=== PATIENT | male | born 1955 | race African-American/Black ===

== ENCOUNTER 2022-05-01 19:23 | Emergency (ER) | payer MEDICARE ==
[2022-05-01 19:29] VITALS: BP 165/78
[2022-05-01 20:40] LABS: BASOPHILS # (AUTO) 0.1 10^3/uL (0.0-0.1); BASOPHILS % (AUTO) 1 % (0-10); EOSINOPHILS # (AUTO) 0.1 10^3/uL (0.0-0.3); EOSINOPHILS % (AUTO) 1 % (0-10); HEMATOCRIT 45 % (40-54); HEMOGLOBIN 15.8 g/dL (13.3-17.7); LYMPHOCYTES # (AUTO) 1.3 10^3/uL (1.0-4.0); LYMPHOCYTES % (AUTO) 14 % (12-44); MEAN CORPUSCULAR HEMOGLOBIN 31 pg (25-34); MEAN CORPUSCULAR HGB CONC 35 g/dL (32-36); MEAN CORPUSCULAR VOLUME 88 fL (80-99); MEAN PLATELET VOLUME 9.9 fL (9.0-12.2); MONOCYTES # (AUTO) 1.1 10^3/uL (0.0-1.0); MONOCYTES % (AUTO) 11 % (0-12); NEUTROPHILS # (AUTO) 7.2 10^3/uL (1.8-7.8); NEUTROPHILS % (AUTO) 74 % (42-75); PLATELET COUNT 295 10^3/uL (130-400); WHITE BLOOD COUNT 9.8 10^3/uL (4.3-11.0)
[2022-05-01 20:57] LABS: ALBUMIN 4.2 GM/DL (3.2-4.5); POTASSIUM 3.2 MMOL/L (3.6-5.0)
[2022-05-01 20:58] LABS: CALCIUM 9.5 MG/DL (8.5-10.1)
[2022-05-01 20:59] LABS: TOTAL PROTEIN 8.1 GM/DL (6.4-8.2)
[2022-05-01 21:01] LABS: BILIRUBIN,TOTAL 0.8 MG/DL (0.1-1.0)
[2022-05-01 21:03] LABS: CREATININE SERUM 1.13 MG/DL (0.60-1.30)
[2022-05-01] MEDS ORDERED: IOHEXOL 350 MG/ML 100 ML (OMNIPAQUE 350) VIAL IV ONE (21:30)
[2022-05-01] MEDS ORDERED: HOLD METFORMIN - RECEIVED CONTRAST 20 ML VIAL IV SCH (21:30)
[2022-05-01] MEDS ORDERED: NS 100 ML (IVPB) BAG IV ONE (21:30)
--- NOTE | 2022-05-01 21:38 | ED General ---
General Chief Complaint: General Problems/Pain Stated Complaint: SWOLLEN THROAT,DIFFICULTY SWALLOWING Nursing Triage Note: PT ARRIVAL TO ER VIA PRIVATE VEHICLE FROM HOME WITH COMPLAINTS OF SOA/SWOLLEN THROAT X1 WEEK. PT STATES THAT HE HAS SEEN DOCTOR TWICE IN THE LAST WEEK FOR THIS. PATIENT WAS STARTED ON PREDISONE AND COMPLETED IT WITHOUT IMPROVEMENT. PT SOUNDS HOARSE. PATIENT DENIES THROAT BEING SORE. PATIENT STATES THAT ITS HARD TO SWALLOW AND JUST HAVE AN OVERALL FATIGUE. Source of Information: Patient, Family (spouse) Exam Limitations: No Limitations History of Present Illness Date Seen by Provider: May 01, 2022 Time Seen by Provider: 19:40 Initial Comments History is provided by patient and spouse. Patient is a 67-year-old male who presents to the emergency department for evaluation of approximately 2 weeks of feeling like his throat is swelling. He states the symptoms have not necessarily worsened but they have not improved. He states earlier today he had an episode of feeling like he could not breathe. He thinks he may have had a panic attack. This prompted his to tell him that he needs to present to the ER which she did. Patient states he is able to eat and drink well he feels like sometimes he has issues getting food swallowed all the way down. Denies any recent fever or other ill symptoms. Denies any wheezing or stridor. Denies any chest pain. No recent trauma to the neck. He has been seen by his PCP multiple times. He was initially placed on prednisone which she has since completed without improvement. Patient states he has a CT of his neck with contrast scheduled as well as evaluation by an ENT provider. Unsure of the exact dates of these as they are being set up by his PCP. Allergies and Home Medications Allergies Coded Allergies: No Known Drug Allergies (Unverified , 05/01/22) Patient Home Medication List Home Medication List Reviewed: Yes Review of Systems Review of Systems Constitutional: no symptoms reported EENTM: see HPI, hoarseness, throat swelling Respiratory: no symptoms reported Cardiovascular: no symptoms reported Gastrointestinal: no symptoms reported Genitourinary: no symptoms reported Musculoskeletal: no symptoms reported Skin: no symptoms reported Psychiatric/Neurological: No Symptoms Reported Hematologic/Lymphatic: No Symptoms Reported Immunological/Allergic: no symptoms reported Past Dnzmfcm-Jiywiu-Yzbtso Hx Patient Social History Tobacco Use?: No Use of E-Cig and/or Vaping dev: No Substance use?: No Alcohol Use?: No Pt feels they are or have been: No Immunizations Up To Date Influenza Vaccine Up-to-Date: No; Not Current Physical Exam Vital Signs Vital Signs - First Documented 05/01/22 19:29 Temp 36.4 Pulse 71 Resp 20 B/P (MAP) 165/78 (107) Pulse Ox 96 O2 Delivery Room Air Capillary Refill : Less Than 3 Seconds Height, Weight, BMI Height: '" Weight: lbs. oz. 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 Skin: Normal Color, Warm/Dry Progress/Results/Core Measures Suspected Sepsis SIRS Temperature: Pulse: 71 Respiratory Rate: 20 Laboratory Tests 05/01/22 20:30: White Blood Count 9.8 Blood Pressure 165 /78 Mean: 107 Laboratory Tests 05/01/22 20:30: Creatinine 1.13, Platelet Count 295, Total Bilirubin 0.8 Results/Orders Lab Results Laboratory Tests Test 05/01/22 20:30 Range/Units White Blood Count 9.8 4.3-11.0 10^3/uL Red Blood Count 5.15 4.30-5.52 10^6/uL Hemoglobin 15.8 13.3-17.7 g/dL Hematocrit 45 40-54 % Mean Corpuscular Volume 88 80-99 fL Mean Corpuscular Hemoglobin 31 25-34 pg Mean Corpuscular Hemoglobin Concent 35 32-36 g/dL Red Cell Distribution Width 14.1 10.0-14.5 % Platelet Count 295 130-400 10^3/uL Mean Platelet Volume 9.9 9.0-12.2 fL Immature Granulocyte % (Auto) 0 % Neutrophils (%) (Auto) 74 42-75 % Lymphocytes (%) (Auto) 14 12-44 % Monocytes (%) (Auto) 11 0-12 % Eosinophils (%) (Auto) 1 0-10 % Basophils (%) (Auto) 1 0-10 % Neutrophils # (Auto) 7.2 1.8-7.8 10^3/uL Lymphocytes # (Auto) 1.3 1.0-4.0 10^3/uL Monocytes # (Auto) 1.1 H 0.0-1.0 10^3/uL Eosinophils # (Auto) 0.1 0.0-0.3 10^3/uL Basophils # (Auto) 0.1 0.0-0.1 10^3/uL Immature Granulocyte # (Auto) 0.0 0.0-0.1 10^3/uL Sodium Level 139 135-145 MMOL/L Potassium Level 3.2 L 3.6-5.0 MMOL/L Chloride Level 102 98-107 MMOL/L Carbon Dioxide Level 25 21-32 MMOL/L Anion Gap 12 5-14 MMOL/L Blood Urea Nitrogen 13 7-18 MG/DL Creatinine 1.13 0.60-1.30 MG/DL Estimat Glomerular Filtration Rate 71 BUN/Creatinine Ratio 12 Glucose Level 106 H 70-105 MG/DL Calcium Level 9.5 8.5-10.1 MG/DL Corrected Calcium 9.3 8.5-10.1 MG/DL Total Bilirubin 0.8 0.1-1.0 MG/DL Aspartate Amino Transf (AST/SGOT) 25 5-34 U/L Alanine Aminotransferase (ALT/SGPT) 29 0-55 U/L Alkaline Phosphatase 86 40-136 U/L Total Protein 8.1 6.4-8.2 GM/DL Albumin 4.2 3.2-4.5 GM/DL My Orders Orders - CANDY GATICA VICE PROVOST Cbc With Automated Diff (05/01/22 20:26) Comprehensive Metabolic Panel (05/01/22 20:26) Iv/Invasive Line Insertion .IV INSERT (05/01/22 20:26) Ct Neck (Soft Tissue) W (05/01/22 20:26) Iohexol Injection (Omnipaque 350 Mg/Ml 1 (05/01/22 21:30) Received Contrast (Hold Metformin- Contr (05/01/22 21:30) Ns (Ivpb) (Sodium Chloride 0.9% Ivpb Bag (05/01/22 21:30) Medications Given in ED Vital Signs/I&O 05/01/22 19:29 Temp 36.4 Pulse 71 Resp 20 B/P (MAP) 165/78 (107) Pulse Ox 96 O2 Delivery Room Air Capillary Refill : Less Than 3 Seconds Blood Pressure Mean: 107 Progress Note : Progress Note Patient is nontoxic and well-hydrated on exam. No adventitious lung sounds or increased work of breathing noted. No significant abnormality noted on oropharyngeal exam. There is more prominent tissue noted to the left soft palate compared to the right. This does not appear to be a peritonsillar abscess. Patient does have a history of palatoplasty for sleep apnea which he states was unsuccessful. He has full range of motion of his neck. No significant cervical adenopathy noted. CT of the neck with contrast was ordered as well as CBC and CMP. Differential diagnosis includes globus, mass, retropharyngeal abscess, peritonsillar abscess. I feel like retropharyngeal abscess and peritonsillar abscess are unlikely at this time given patient's reassuring vital signs and exam. CBC and CMP are largely unremarkable other than some mild hypokalemia. There was an issue with the radiology software that led to a prolonged turnaround time in obtaining a read. Due to this prolonged wait time, patient asked to be allowed to leave. They were informed this would be AGAINST MEDICAL ADVICE and they signed paperwork stating they understood the risks of leaving versus benefits of staying. I encouraged them to follow-up with PCP. Return precautions for urgent symptomology discussed. Patient verbalized understanding. Departure Impression Primary Impression: Hoarseness Additional Impression: Globus sensation Disposition: 07 AGAINST MEDICAL ADVICE Condition: Against Medical Advice Departure-Patient Inst. Referrals: NO,LOCAL PHYSICIAN (PCP/Family) Primary Care Physician CANDY GATICA APRN May 01, 2022 21:38
--- NOTE | 2022-05-02 08:02 | Diagnostic Imaging Report ---
PROCEDURE: CT neck soft tissue with contrast. TECHNIQUE: Multiple contiguous axial images were obtained through the neck after the administration of contrast. Auto Exposure Controls were utilized during the CT exam to meet ALARA standards for radiation dose reduction. INDICATION: Worsening dysphagia. Hoarseness. COMPARISON: None. FINDINGS: No suspicious mass or fluid collection is seen in the neck. No lymphadenopathy. No suspicious enhancement or asymmetry in the pharynx or larynx. The floor of the mouth, tongue base, epiglottis and retropharyngeal space are unremarkable. Normal thyroid and major salivary glands. Major vessels in the neck are grossly patent. The lung apices are clear. Visualized paranasal sinuses and mastoids are clear. Moderate to severe spondylotic changes in the cervical spine. IMPRESSION: No acute CT findings in the neck. Agree with preliminary interpretation. Dictated by: Dictated on workstation # [id number]
== END 2022-05-01 22:15 | disposition left against medical advice (07) ==
LOC: ER 19:27
DX: R49.0 Dysphonia (principal); E87.6 Hypokalemia; R09.89 Other specified symptoms and signs involving the circulatory and respiratory systems; Z28.310 Unvaccinated for COVID-19
CPT/HCPCS: 36415; 70491; 80053; 85025; 99283

== ENCOUNTER 2022-05-16 14:40 | Emergency (ER) | payer MEDICARE ==
[~2022-05-16] VITALS: Ht 183 cm; Wt 117.9 kg
[2022-05-16] MEDS ORDERED: LACTATED RINGERS 1,000 ML IV ONE (15:00)
[2022-05-16 15:08] LABS: BASOPHILS # (AUTO) 0.1 10^3/uL (0.0-0.1); BASOPHILS % (AUTO) 1 % (0-10); EOSINOPHILS # (AUTO) 0.1 10^3/uL (0.0-0.3); EOSINOPHILS % (AUTO) 1 % (0-10); HEMATOCRIT 47 % (40-54); HEMOGLOBIN 16.8 g/dL (13.3-17.7); LYMPHOCYTES # (AUTO) 1.8 10^3/uL (1.0-4.0); LYMPHOCYTES % (AUTO) 22 % (12-44); MEAN CORPUSCULAR HEMOGLOBIN 31 pg (25-34); MEAN CORPUSCULAR HGB CONC 36 g/dL (32-36); MEAN CORPUSCULAR VOLUME 86 fL (80-99); MEAN PLATELET VOLUME 10.5 fL (9.0-12.2); MONOCYTES # (AUTO) 0.8 10^3/uL (0.0-1.0); MONOCYTES % (AUTO) 10 % (0-12); NEUTROPHILS # (AUTO) 5.4 10^3/uL (1.8-7.8); NEUTROPHILS % (AUTO) 66 % (42-75); PLATELET COUNT 319 10^3/uL (130-400); WHITE BLOOD COUNT 8.1 10^3/uL (4.3-11.0)
[2022-05-16 15:19] LABS: POTASSIUM 4.2 MMOL/L (3.6-5.0)
--- NOTE | 2022-05-16 15:20 | ED General ---
General Chief Complaint: Cardiac/General Problems Stated Complaint: LOW BLOOD PRESSURE Nursing Triage Note: PT WITH STATES PT IS HAVING A HARD TIME SWALLOWING AND IS SCHEDULED FOR CT'S PER DR. JEAN, ISSUE STARTED ABOUT 3 WKS AGO, DIFFICULTY TALKING, RT FACE WEAKNESS Source of Information: Patient, Spouse ( IS VERY ANXIOUS, TALKS NON-STOP AND TRIES TO DO ALL TALKING FOR PT, AND IS MAKING MULTIPLE DEMANDS IMMEIDATELY ON ARRIVAL. ) History of Present Illness Date Seen by Provider: May 16, 2022 Time Seen by Provider: 14:58 Initial Comments PT ARRIVES VIA POV FROM HOME PT HAS BEEN HAVING SYMPTOMS FOR THE LAST 3 WEEKS--SINCE THE END OF MARCH: -DIFFICULTY SWALLOWING--STATES HE CANNOT SWALLOW FOOD, BUT IS ABLE TO DRINK LIQUIDS OK AND SOME SOFT FOODS SUCH APPLESAUCE. HE IS HAVING DIFFICULTY SWALLOWING SALIVA, AND IS CONSTANTLY SPITTING UP SALIVA -VOICE IS HOARSE -RIGHT SIDE OF FACE IS DROOPING AND NUMB--CAN'T CLOSE RIGHT EYE, OR RAISE RIGHT BROW, AND RIGHT CHEEK / SIDE OF MOUTH IS DROOPING, AND RIGHT EYE IS WATERY ALL THE TIME. -HE HAS BEEN HAVING GENERALIZED WEAKNESS, BUT NO ARM OR LEG WEAKNESS OR NUMBNESS OR TINGLING -HE GETS LIGHTHEADED WHEN HE STANDS UP -HE HAS LOST 25# IN THE LAST 2 WEEKS, DUE TO NOT BEING ABLE TO EAT SOLID FOOD X 3 WEEKS NO HEADACHE NO VISION CHANGES NO CHANGES IN HEARING NO ABDOMINAL PAIN HAS HAD SOME NAUSEA, BUT NO VOMITING. NO DIARRHEA OR CONSTIPATION NO URINARY SYMPTOMS NO SORE THROAT NO CHEST PAIN, NO SHORTNESS OF BREATH, NO PALPITATIONS NO SYNCOPE STATES HE GETS CONFUSED AT TIMES HE FELL TWICE LAST WEEK--WAS TRYING TO WALK TO THE BATHROOM, AND WAS JUST TOO WEAK TO STAND, AND FELL. HE DID HIT HIS HEAD ONCE ON THE WALL. NO LOSS OF CONSCIOUSNESS. PT HAS SEEN [employer] AT IS DR'S OFFICE-- STATES "5 NURSE PRACTITIONERS", AND YESTERDAY SAW DR. JEAN, GENERAL SURGEON, WHO ORDERED SOME OUTPATIENT TESTS FOR TOMORROW--INCLUDING CT SCANS OF HEAD, CHEST/ABDOMEN/PELVIS AND CAROTID ULTRASOUND. MADE AN APPOINTMENT WITH HIM TO GET AN EGD DONE. HE WAS SEEN HERE 05/01/22 FOR THIS PROBLEM, HAD CT OF NECK DONE, BUT LEFT AMA PRIOR TO GETTING TEST RESULTS. "TIRED OF WAITING" SYMPTOMS ARE NO DIFFERENT TODAY IN ANY WAY. STATES THAT THEY "JUST WANTED ANSWERS AND WANT SOMETHING DONE" HE HAS NOT HAD ANY OF THESE SYMPTOMS BEFORE. PT HAS HISTORY OF HTN, AND IS PRE-DIABETIC--HE DOES NOT TAKE DIABETES MEDICATION HE HAD A TIA IN THE EARLY . SYMPTOMS RESOLVED BEFORE HE GOT TO THE HOSPITAL. NO PROBLEMS SINCE PT IS ON 81 MG ASPIRIN, NO OTHER BLOOD THINNERS NO HISTORY OF HEART PROBLEMS. PCP: CINDI CHAVEZ Allergies and Home Medications Allergies Coded Allergies: No Known Drug Allergies (Unverified , 05/01/22) Patient Home Medication List Home Medication List Reviewed: Yes Review of Systems Review of Systems Constitutional: No chills, No diaphoresis; dizziness; No fever; malaise, weakness EENTM: see HPI, tearing, hoarseness; No hearing loss, No ear pain, No eye pain, No mouth pain, No mouth swelling, No throat pain, No throat swelling Respiratory: no symptoms reported; No cough, No short of breath Cardiovascular: see HPI; No chest pain, No edema, No palpitations, No syncope Gastrointestinal: see HPI; No abdominal pain, No diarrhea; dysphagia; No nausea, No vomiting Genitourinary: no symptoms reported Musculoskeletal: no symptoms reported Skin: no symptoms reported Psychiatric/Neurological: See HPI; Denies Headache; Numbness, Paresthesia, Weakness Hematologic/Lymphatic: No Symptoms Reported Immunological/Allergic: no symptoms reported Past Ebmfwtj-Gzisag-Yfgpsr Hx Patient Social History Tobacco Use?: Yes Tobacco type used: Cigarettes Smoking Status: Former Smoker Substance use?: No Alcohol Use?: No Immunizations Up To Date Second COVID19 Vaccination Lorenzo: YES Past Medical History Surgery/Hospitalization HX: TIA, SOFT PALATE SURGERY, RT SHOULDER, LT KNEE, HYPERTENSION Surgeries: Yes Orthopedic Respiratory: No Cardiac: Yes Hypertension Neurological: Yes TIA Genitourinary: No Gastrointestinal: No Musculoskeletal: No Endocrine: Yes (PRE-DIABETIC--NO MEDICATION) Diabetes, Non-Insulin dep HEENT: No Cancer: No Psychosocial: No Integumentary: No Blood Disorders: No Physical Exam Vital Signs Vital Signs - First Documented 05/16/22 14:47 Temp 36.4 Pulse 96 Resp 20 B/P (MAP) 152/95 (114) Pulse Ox 99 O2 Delivery Room Air Capillary Refill : Less Than 3 Seconds Height, Weight, BMI Height: '" Weight: lbs. oz. kg; 35.00 BMI Method: General Appearance: No Apparent Distress, WD/WN HEENT: PERRL/EOMI, TMs Normal, Pharynx Normal, Moist Mucous Membranes, Other (RIGHT FACIAL DROOP, UNABLE TO COMPLETELY CLOSE RIGHT EYE, WITH TEARING OF RIGHT EYE. UNABLE TO RAISE RIGHT EYEBROW. TONGUE IS MIDLINE. PT IS CONSTANTLY SPITTING OUT SALIVA. VOICE IS HOARSE. ) Neck: Full Range of Motion, Normal Inspection, Non Tender, Supple; No Carotid Bruit, No JVD Respiratory: Normal Breath Sounds, No Accessory Muscle Use, No Respiratory Di stress Cardiovascular: Regular Rate, Rhythm, No Edema, No JVD, No Murmur, Normal Peripheral Pulses Gastrointestinal: Normal Bowel Sounds, No Organomegaly, No Pulsatile Mass, Non Tender, Soft Back: Normal Inspection, No CVA Tenderness, No Vertebral Tenderness Extremity: Normal Capillary Refill, Normal Inspection, Normal Range of Motion, Non Tender, No Calf Tenderness, No Pedal Edema Neurologic/Psychiatric: Alert, Oriented x3; No EOM Palsy; Facial Droop (WTIH SOME DECREASED SENSATION TO RIGHT SIDE OF FACE. ), Other (NO EXTREMITY WEAKNESS, STOCK LAYER EQUAL AND ARM AND LEG STRENGTH ARE ALL EQUAL, NO DRIFT. NORMAL [id number] AND [id number]. NO NEGLECT. NO VISUAL FIELD LOSS. HE DOES HAVE SOME GENERALIZED LETHARGY. NIH IS 2) Skin: Normal Color (PT IS BLACK), Warm/Dry Progress/Results/Core Measures Suspected Sepsis SIRS Temperature: Pulse: 96 Respiratory Rate: 20 Laboratory Tests 05/16/22 15:05: White Blood Count 8.1 Blood Pressure 152 /95 Mean: 114 Laboratory Tests 05/16/22 15:05: Creatinine 1.21, INR Comment 1.1, Platelet Count 319, Total Bilirubin 0.8 Results/Orders Lab Results Laboratory Tests Test 05/16/22 15:05 05/16/22 16:22 Range/Units White Blood Count 8.1 4.3-11.0 10^3/uL Red Blood Count 5.47 4.30-5.52 10^6/uL Hemoglobin 16.8 13.3-17.7 g/dL Hematocrit 47 40-54 % Mean Corpuscular Volume 86 80-99 fL Mean Corpuscular Hemoglobin 31 25-34 pg Mean Corpuscular Hemoglobin Concent 36 32-36 g/dL Red Cell Distribution Width 13.2 10.0-14.5 % Platelet Count 319 130-400 10^3/uL Mean Platelet Volume 10.5 9.0-12.2 fL Immature Granulocyte % (Auto) 0 % Neutrophils (%) (Auto) 66 42-75 % Lymphocytes (%) (Auto) 22 12-44 % Monocytes (%) (Auto) 10 0-12 % Eosinophils (%) (Auto) 1 0-10 % Basophils (%) (Auto) 1 0-10 % Neutrophils # (Auto) 5.4 1.8-7.8 10^3/uL Lymphocytes # (Auto) 1.8 1.0-4.0 10^3/uL Monocytes # (Auto) 0.8 0.0-1.0 10^3/uL Eosinophils # (Auto) 0.1 0.0-0.3 10^3/uL Basophils # (Auto) 0.1 0.0-0.1 10^3/uL Immature Granulocyte # (Auto) 0.0 0.0-0.1 10^3/uL Prothrombin Time 15.0 H 12.2-14.7 SEC INR Comment 1.1 0.8-1.4 Activated Partial Thromboplast Time 29 24-35 SEC Sodium Level 137 135-145 MMOL/L Potassium Level 4.2 3.6-5.0 MMOL/L Chloride Level 101 98-107 MMOL/L Carbon Dioxide Level 21 21-32 MMOL/L Anion Gap 15 H 5-14 MMOL/L Blood Urea Nitrogen 22 H 7-18 MG/DL Creatinine 1.21 0.60-1.30 MG/DL Estimat Glomerular Filtration Rate 65 BUN/Creatinine Ratio 18 Glucose Level 154 H 70-105 MG/DL Calcium Level 9.8 8.5-10.1 MG/DL Corrected Calcium 9.8 8.5-10.1 MG/DL Magnesium Level 2.1 1.6-2.4 MG/DL Total Bilirubin 0.8 0.1-1.0 MG/DL Aspartate Amino Transf (AST/SGOT) 38 H 5-34 U/L Alanine Aminotransferase (ALT/SGPT) 46 0-55 U/L Alkaline Phosphatase 85 40-136 U/L Total Protein 8.7 H 6.4-8.2 GM/DL Albumin 4.0 3.2-4.5 GM/DL Amylase Level 64 25-125 U/L TSH [place] Testing 2.23 0.35-4.94 UIU/ML Urine Color YELLOW Urine Clarity SL CLOUDY Urine pH 7.0 5-9 Urine Specific [place] 1.015 L 1.016-1.022 Urine Protein NEGATIVE NEGATIVE Urine Glucose (UA) NEGATIVE NEGATIVE Urine Ketones NEGATIVE NEGATIVE Urine Nitrite NEGATIVE NEGATIVE Urine Bilirubin NEGATIVE NEGATIVE Urine Urobilinogen 0.2 < = 1.0 MG/DL Urine Leukocyte Esterase NEGATIVE NEGATIVE Urine RBC (Auto) NEGATIVE NEGATIVE Urine RBC NONE /HPF Urine WBC NONE /HPF Urine Squamous Epithelial Cells NONE /HPF Urine Crystals NONE /LPF Urine Bacteria NEGATIVE /HPF Urine Casts PRESENT /LPF Urine Hyaline Casts RARE /LPF Urine Mucus NEGATIVE /LPF Urine Culture Indicated NO My Orders Orders - ANISHA LERNER DO Ed Iv/Invasive Line Start (05/16/22 14:56) Ekg Tracing (05/16/22 14:56) Monitor-Rhythm Ecg Trace Only (05/16/22 14:56) Ct Head Wo-R/O Stroke (05/16/22 14:56) Amylase (05/16/22 14:56) Cbc With Automated Diff (05/16/22 14:56) Comprehensive Metabolic Panel (05/16/22 14:56) Magnesium (05/16/22 14:56) Protime With Inr (05/16/22 14:56) Partial Thromboplastin Time (05/16/22 14:56) Thyroid Analyzer (05/16/22 14:56) Ua Culture If Indicated (05/16/22 14:56) Ed Iv/Invasive Line Start (05/16/22 14:56) Lactated Ringers (Lr 1000 Ml Iv Solution (05/16/22 15:00) Ct Angio Head/Neck (05/16/22 15:32) Ct Chest/Abdomen/Pelvis W (05/16/22 15:32) Iohexol Injection (Omnipaque 350 Mg/Ml 1 (05/16/22 15:45) Ns (Ivpb) (Sodium Chloride 0.9% Ivpb Bag (05/16/22 15:45) Ekg Tracing (05/16/22 18:36) Enoxaparin Injection (Lovenox Injection) (05/16/22 18:45) Enoxaparin Injection (Lovenox Injection) (05/16/22 18:45) Diltiazem Drip Pre-Mix (Cardizem Drip Pr (05/16/22 18:45) O2 (05/16/22 18:44) Medications Given in ED Vital Signs/I&O 05/16/22 05/16/22 05/16/22 14:47 18:49 19:15 Temp 36.4 36.2 Pulse 96 93 92 Resp 20 20 B/P (MAP) 152/95 (114) 164/85 146/108 Pulse Ox 99 98 O2 Delivery Room Air Room Air Capillary Refill : Less Than 3 Seconds Blood Pressure Mean: 114 Progress Note : Progress Note PT VOICED NO COMPLAINTS DURING ER STAY BP STABLE HR IN 90'S FOR MOST OF ER STAY 1835--PT IS NOW SUDDENLY IN ATRIAL FIBRILLATION WITH RVR--RATE 140-150 HE IS HAVING INTERMITTENT ATRIAL FIBRILLATION, LASTING A FEW MINUTES AT A TIME. THEN GOES BACK INTO NSR WITH RATE IN 90'S. PT IS COMPLETELY UNAWARE OF RAPID OR IRREGULAR HEART BEAT. HE DENIES ANY SYMPTOMS OF ANY KIND DURING THESE EPISODES REPEAT EKG ORDERED BP IS UNCHANGED / STABLE. GIVEN LOVENOX AND STARTED ON CARDIZEM DRIP. DESPITE, NO EVIDENCE OF LARGE VESSEL OCCLUSION OR EVIDENCE OF CVA ON CT SCAN, PT'S SYMPTOMS ARE HIGHLY SUGGESTIVE OF CVA, ESPECIALLY AFTER PT WENT INTO INTERMITTENT ATRIAL FIBRILLATION DURING ER STAY, AND THE FACT THAT PT WAS COMPLETELY UNAWARE OF IRREGULAR HEART BEAT. REVIEWED PREVIOUS ER RECORD, INCLUDING NOTES, AND TEST RESULTS--ONLY OTHER VISIT HERE. REVIEWED ALL TEST RESULTS, NEED FOR TRANSFER, AND PT IS AGREEABLE. ECG Initial ECG Impression Date: May 16, 2022 Initial ECG Impression Time: 15:09 Initial ECG Rate: 120 Initial ECG Rhythm: S.Tach Initial ECG Comparisson: No Previous ECG Available EKG : EKG Time: 18:40 Rate: 136 Rhythm: A Fib/Flutter ECG Comparisson: Changed Diagnostic Imaging Comments CT HEAD--PER RADIOLOGIST REPORT AT 1532 FINDINGS: Ventricles and sulci appear appropriate for the patient's age. No definite sulcal effacement is seen. There is no midline shift. No acute intra-axial or extra-axial hemorrhage is detected. There is periventricular low attenuation, likely on the basis of chronic microvascular ischemia. There does appear to be some mild soft tissue swelling in the left frontal scalp, indeterminate. Visualized paranasal sinuses are clear. IMPRESSION: Chronic changes. No acute intracranial process is detected. CT ANGIOGRAM OF HEAD / NECK--PER RADIOLOGIST REPORT AT 1710 FINDINGS: Postcontrast head CT continues to demonstrate no CT evidence of large territorial infarction or hemorrhage. No hydrocephalus or mass effect. No abnormal intracranial enhancement. 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 There is less than 50% narrowing of the bilateral internal carotid artery origins and cavernous segments. The basilar, bilateral vertebral, common carotid, internal carotid, anterior cerebral, middle cerebral and posterior cerebral arteries demonstrate no high-grade narrowing, aneurysm or dissection. The dural venous sinuses are normally opacified. [id number] spondylotic changes in the cervical spine. No acute osseous findings. Mild mucosal thickening in the maxillary sinuses. The lung apices are clear. IMPRESSION: No large vessel occlusion. No high-grade narrowing, aneurysm or dissection involving the major arteries in the head and neck. CT CHEST / ABDOMEN / PELVIS--PER RADIOLOGIST REPORT AT 1710 FINDINGS: There is no edema or pneumonia. No pleural effusion. No pneumothorax. No suspicious nodules. There is no axillary or supraclavicular lymphadenopathy. There is no mediastinal lymphadenopathy. Heart size is normal. There are moderate coronary artery calcifications. No pericardial effusion. Aorta is normal in caliber. The liver is normal without focal lesion. There is no biliary ductal dilation. There are stones in the gallbladder. Pancreas is normal. Spleen is normal. Adrenal glands are normal. The kidneys are normal. There is no hydronephrosis. Urinary bladder is normal. Bowel is normal in caliber without obstruction or inflammation. No free fluid or air. No abdominal or pelvic lymphadenopathy. Aorta is normal in caliber without aneurysm. There are no suspicious osseus lesions. IMPRESSION: 1. No acute abnormality in the chest, abdomen or pelvis. Reviewed: Reviewed by Id Departure Communication (Admissions) 171--SPOKE WITH DR. JEAN ABOUT PATIENT. HE AGREES THAT PT'S SYMPTOMS ARE VERY SUGGESTIVE OF CVA. HE ADVISES THAT PT WILL EVENTUALLY NEED AN EGD, BUT NOT ON ANY EMERGENT BASIS. HE AGREES THAT PT NEEDS NEUROLOGY EVALUATION. 172--CALLED [facility] TRANSFER LINE. PAGING NEUROLOGIST. PT'S IMAGES HAVE BEEN CLOUDED TO [facility]. 172--SPOKE WITH DR. PINTO, NEUROLOGIST AT [facility]. HE ADVISES TRANSFER TO [facility] ER. 1736--SPOKE WITH DR. COLINDRES, [facility] ER PHYSICIAN. SHE ACCEPTS PT FOR TRANSFER. LOCAL EMS INFORMED 1837--CALLED [facility] ER, SPOKE WITH DR. COLINDRES, AND UPDATED HER ON PT'S CONDITION, WITH FINDINGS OF NEW ONSET OF INTERMITTENT ATRIAL FIBRILLATION WITH RVR. SHE IS AGREEABLE TO LOVENORuben AND CARDIOSIRIS VELARDE. 1844--EMS HERE FOR TRANSPORT. Impression Primary Impression: STROKE WITH RIGHT FACIAL PARALYSIS Additional Impressions: Dysphagia NEW ONSET AFIB WITH RVR HTN (hypertension) History of prediabetes Hoarseness Generalized weakness WEIGHT LOSS DUE TO INABILITY TO EAT RECENT FALLS Disposition: 02 XFER SHT-TRM HOSP Condition: Stable Transfer Transfer Reason: Exceeds level of care (NEED FOR NEUROLOGY SERVICES UNAVAILABLE HERE. ) Transfer Facility: [facility] Method of Transfer: EMS Departure-Patient Inst. Referrals: NO,LOCAL PHYSICIAN (PCP/Family) Primary Care Physician ANISHA LERNER DO May 16, 2022 15:20
[2022-05-16 15:21] LABS: CALCIUM 9.8 MG/DL (8.5-10.1)
[2022-05-16 15:22] LABS: INR 1.1 (0.8-1.4); TOTAL PROTEIN 8.7 GM/DL (6.4-8.2)
[2022-05-16 15:24] LABS: BILIRUBIN,TOTAL 0.8 MG/DL (0.1-1.0)
[2022-05-16 15:25] LABS: CREATININE SERUM 1.21 MG/DL (0.60-1.30)
[2022-05-16 15:28] LABS: MAGNESIUM 2.1 MG/DL (1.6-2.4)
--- NOTE | 2022-05-16 15:30 | Diagnostic Imaging Report ---
PROCEDURE: CT head wo r/o stroke. TECHNIQUE: Multiple contiguous axial images were obtained through the brain without the use of intravenous contrast. Auto Exposure Controls were utilized during the CT exam to meet ALARA standards for radiation dose reduction. INDICATION: Right-sided facial numbness and weakness. COMPARISON: No prior studies are available for comparison. FINDINGS: Ventricles and sulci appear appropriate for the patient's age. No definite sulcal effacement is seen. There is no midline shift. No acute intra-axial or extra-axial hemorrhage is detected. There is periventricular low attenuation, likely on the basis of chronic microvascular ischemia. There does appear to be some mild soft tissue swelling in the left frontal scalp, indeterminate. Visualized paranasal sinuses are clear. IMPRESSION: Chronic changes. No acute intracranial process is detected. Dictated by: Dictated on workstation # [id number]
[2022-05-16] MEDS ORDERED: NS 100 ML (IVPB) BAG IV ONE ×2 (15:45)
[2022-05-16] MEDS ORDERED: IOHEXOL 350 MG/ML 100 ML (OMNIPAQUE 350) VIAL IV ONE ×2 (15:45)
[2022-05-16 15:49] LABS: TSH (THYROID ANALYZER) 2.23 UIU/ML (0.35-4.94)
[2022-05-16 16:25] LABS: BILIRUBIN,URINE NEGATIVE (NEGATIVE); CLARITY,URINE SL CLOUDY; COLOR,URINE YELLOW; GLUCOSE, URINE (UA) NEGATIVE (NEGATIVE); KETONES,URINE NEGATIVE (NEGATIVE); LEUKOCYTE ESTERASE ,URINE NEGATIVE (NEGATIVE); NITRITE,URINE NEGATIVE (NEGATIVE); PROTEIN,URINE NEGATIVE (NEGATIVE)
[2022-05-16 16:33] LABS: BACTERIA,URINE NEGATIVE /HPF; HYALINE CASTS, URINE RARE /LPF
--- NOTE | 2022-05-16 16:34 | Diagnostic Imaging Report ---
EXAMINATION: CT chest, abdomen and pelvis with intravenous contrast. TECHNIQUE: Multiple contiguous axial images were obtained through the chest, abdomen and pelvis after the uneventful administration of intravenous contrast. All CT scans use one or more of the following dose optimizing techniques: automated exposure control, MA and/or KvP adjustment based on patient size and exam type or iterative reconstruction. HISTORY: Weight loss, stroke like symptoms. COMPARISON: None available. FINDINGS: There is no edema or pneumonia. No pleural effusion. No pneumothorax. No suspicious nodules. There is no axillary or supraclavicular lymphadenopathy. There is no mediastinal lymphadenopathy. Heart size is normal. There are moderate coronary artery calcifications. No pericardial effusion. Aorta is normal in caliber. The liver is normal without focal lesion. There is no biliary ductal dilation. There are stones in the gallbladder. Pancreas is normal. Spleen is normal. Adrenal glands are normal. The kidneys are normal. There is no hydronephrosis. Urinary bladder is normal. Bowel is normal in caliber without obstruction or inflammation. No free fluid or air. No abdominal or pelvic lymphadenopathy. Aorta is normal in caliber without aneurysm. There are no suspicious osseus lesions. IMPRESSION: 1. No acute abnormality in the chest, abdomen or pelvis. Dictated by: Dictated on workstation # [id number]
--- NOTE | 2022-05-16 16:38 | Diagnostic Imaging Report ---
PROCEDURE: CT angiography of the head and CT angiography of the neck with and without contrast. TECHNIQUE: Contiguous noncontrast images were obtained from the skull base through the vertex. After intravenous contrast administration, helical CT angiography of the neck was performed. Source data was reformatted into 3D MIP projections. Delayed post contrast acquisition was also obtained. Auto Exposure Controls were utilized during the CT exam to meet ALARA standards for radiation dose reduction. INDICATION: Right facial droop. Right-sided weakness. Dysphasia. COMPARISON: CT head without contrast from 05/16/2022. FINDINGS: Postcontrast head CT continues to demonstrate no CT evidence of large territorial infarction or hemorrhage. No hydrocephalus or mass effect. No abnormal intracranial enhancement. 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 There is less than 50% narrowing of the bilateral internal carotid artery origins and cavernous segments. The basilar, bilateral vertebral, common carotid, internal carotid, anterior cerebral, middle cerebral and posterior cerebral arteries demonstrate no high-grade narrowing, aneurysm or dissection. The dural venous sinuses are normally opacified. Fast-xn-afohtbom spondylotic changes in the cervical spine. No acute osseous findings. Mild mucosal thickening in the maxillary sinuses. The lung apices are clear. IMPRESSION: No large vessel occlusion. No high-grade narrowing, aneurysm or dissection involving the major arteries in the head and neck. Dictated by: Dictated on workstation # [id number]
[2022-05-16] MEDS ORDERED: dilTIAZem DRIP PRE-MIX 125 ML IV SCH (18:45)
[2022-05-16] MEDS ORDERED: ENOXAPARIN 80 MG/0.8 ML (LOVENOX) SYR SC ONE (18:45)
[2022-05-16] MEDS ORDERED: ENOXAPARIN 40 MG/0.4 ML (LOVENOX) SYR SC ONE (18:45)
[2022-05-16 19:15] VITALS: BP 146/108
== END 2022-05-16 19:15 | disposition short-term general hospital (02) ==
LOC: EDUNIT# 14:40 → ER 14:42
DX: I63.9 Cerebral infarction, unspecified (principal); G81.91 Hemiplegia, unspecified affecting right dominant side; R29.810 Facial weakness; R13.10 Dysphagia, unspecified; I10 Essential (primary) hypertension; I48.91 Unspecified atrial fibrillation; E11.9 Type 2 diabetes mellitus without complications; R63.4 Abnormal weight loss; Z79.82 Long term (current) use of aspirin; Z87.891 Personal history of nicotine dependence; W18.30XA Fall on same level, unspecified, initial encounter; W22.01XA Walked into wall, initial encounter
CPT/HCPCS: 36415; 70450; 70496; 70498; 71260; 74177; 80053; 81000; 82150; 83735; 84443; 85025; 85610; 85730; 93005; 93041